=== PATIENT | female | born 2000 | race Caucasian/White ===

== ENCOUNTER 2020-04-14 20:25 | Observation (INO) | payer BC, SELFPAY ==
[2020-04-14 20:26] VITALS: BP 128/75; PULSE 109; RESP 16; TEMP 36.6; O2SAT 100; BMI 25.4
--- NOTE | 2020-04-14 21:39 | CT_ITS ---
We are attempting to reach an attending provider to discuss findings. An addendum with communication details will be sent when the communication is complete. STUDY: CT ABDOMEN AND PELVIS WITHOUT CONTRAST REASON FOR EXAM: Female, 20 years old. RT SIDED ABD PAIN AND BLOATING THAT STARTED YESTERDAY -- PREG TEST WAS NEG. RADIATION DOSAGE (If Supplied By Facility): CTDIvol = ( 6.16 ) mGy, DLP = ( 292.56 ) mGycm TECHNIQUE: Transaxial images were obtained from the dome of the diaphragm to the symphysis pubis without oral contrast, and without intravenous contrast. Sagittal and coronal images were reconstructed. Individualized dose optimization techniques were used for this CT. COMPARISON: None. FINDINGS: The visualized lung bases are unremarkable. The visualized portions of the heart are within normal limits. Normal liver. Normal gallbladder and extrahepatic biliary system. Normal spleen. Normal pancreas. Normal bilateral adrenal glands. 2 mm nonobstructing right renal stone. Normal left kidney. Normal visualized stomach. Normal small intestine. Normal colon. The appendix is prominent, measuring 8 mm in diameter on image 117 of series 2. No air is seen in the appendiceal lumen. No right lower quadrant fatty stranding is seen. Normal abdominal aorta. Normal inferior vena cava. Normal retroperitoneum. Normal urinary bladder. Normal abdominal wall. Normal osseous structures. CT/Abdomen/Pelvis without Cont IMPRESSION: Overall, acute appendicitis cannot be excluded. The appendix is prominent, measuring 8 mm in diameter. No air is seen in the appendiceal lumen. No right lower quadrant fatty stranding is seen. Surgical consultation may be indicated. No evidence of acute intestinal pathology or acute obstructive uropathy. Electronically Signed: Efe Tracy MD at 22:54 EDT Tel , Service support ,
[2020-04-14 21:59] LABS: Absolute Lymphocyte Count 2.78 X10^3/uL (0.83-4.51); Absolute Neutrophil Count 3.6 X10^3/uL (2.0-7.7); Basophil# 0.05 X10^3/uL; Basophil% 0.7 % (0-1); Eosinophil# 0.16 X10^3/uL; Eosinophils% 2.2 % (0-5); Hematocrit 42.5 % (37-47); Hemoglobin 14.6 g/dL (12.0-15.0); Lymphocyte # 2.78 X10^3/ul (4.0); Lymphocyte % 38.2 % (19-41); Mean Corp Hgb Conc 34.4 g/dL (32-36); Mean Corpuscular Hgb 30.1 pg (27.0-32.0); Mean Corpuscular Volume 87.6 fL (81-99); Mean Platelet Vol. 9.7 fl (6.2-12.0); Monocyte# 0.67 X10^3/uL; Monocyte% 9.2 % (0-10); NRBC Flagged by Analyzer 0 % (0-5); Neutrophil % 49.4 % (47-70); Platelet Count 360 K/mm3 (150-450); RBC Distribution Width CV 11.6 % (11.6-14.6); RBC Distribution Width SD 36.9 fl (35.1-43.9); Red Blood Count 4.85 M/mm3 (4.2-5.4); White Blood Count 7.3 K/mm3 (4.4-11.0)
[2020-04-14 22:02] LABS: Bacteria 0 SEEN /hpf (None Seen); Mucous, Urine 0 SEEN /hpf (<or=2+); Red Blood Cells-Urine 0 SEEN /hpf (0-5); White Blood Cells 0 SEEN /hpf (0-5)
[2020-04-14] MEDS: Ondansetron 4 MG/2 ML Vial IV (22:05)
[2020-04-14] MEDS: 0.9% Normal Saline 1,000 ML 1000 ML IV (22:05)
[2020-04-14] MEDS: Morphine 4 MG/ML Syringe IV (22:06)
[2020-04-14 22:10] LABS: Internal QC Validated? YES +Cl - CLEAR BKGD; Pregnancy, Serum, hCG Quali. NEGATIVE Negative
[2020-04-14 22:14] LABS: Glucose, Dipstick Normal (Normal); Ketone-Dipstick Negative (Negative); Leukocyte Esterase-Dipstick Negative /ul (Negative); Nitrite-Dipstick Negative (Negative); Occult Blood-Urine Negative /ul (Negative); Protein-Dipstick Negative (Negative); Specific Gravity, Urine 1.005 (1.002-1.030); Urine Bilirubin Dipstick Negative (Negative); Urine Urobilinogen Normal (Normal)
[2020-04-14 22:15] LABS: Color, Urine Yellow (Yellow); Urine Clarity Sl. Cloudy (Clear)
[2020-04-14 22:16] LABS: ALB/GLOB Ratio 1.1 RATIO (0.9-2.4); AST(SGOT) 18 U/L (15-37); Alanine Aminotransfer ALT/SGPT 30 U/L (13-56); Albumin, Serum 3.9 g/dL (3.2-5.0); Alkaline Phosphatase 91 U/L (45-117); Anion Gap 3 (5-15); BUN 9 mg/dL (7-18); BUN/Creat Ratio 9.2 RATIO (10-20); Calcium,Total 8.9 mg/dL (8.5-10.1); Chloride 107 mmol/L (98-107); Creatinine, Serum 0.98 mg/dL (0.55-1.02); EST Glomerular Filtration Rate 75 mL/min (>60); Est Glom Filt Rate - Afr Amer 91 mL/min (>60); Estimated Creatinine Clearance 67.95 ml/min; Globulin 3.5 g/dL (2.2-4.2); Glucose 81 mg/dL (74-106); Potassium 4.2 mmol/L (3.5-5.1); Protein, Total 7.4 g/dL (6.4-8.2); Sodium Level 141 mmol/L (136-145)
[2020-04-14 22:28] LABS: Squamous Epithelial Cells - UA 5-10 SEEN /hpf (5-10)
--- NOTE | 2020-04-14 23:32 | PCM.CONS.GEN ---
Problem List (1) Acute appendicitis Status: Acute Qualifiers: Acute appendicitis type: with localized peritonitis Appendicitis gangrene presence: unspecified whether gangrene present Appendicitis perforation presence: without perforation Appendicitis abscess presence: without abscess Qualified Code(s): K35.30 - Acute appendicitis with localized peritonitis, without perforation or gangrene Reason for Consult Date of Consultation: 04/14/20 History of Present Illness: The patient is a 20 year old F who developed generalized abdominal pain yesterday that then localized to the right lower quadrant. She presented to the emergency department where laboratory values show that they were normal and a CAT scan with no contrast was equivocal for possible appendicitis. The appendix was generous but there was no fluid or fat stranding identified. She has had no hematochezia. No fever. No nausea or vomiting. Past Medical History Allergies No Known Allergies Allergy (Verified 04/14/20 20:28) Home Medications: Ambulatory Orders Medication Instructions Recorded Amitriptyline HCl 50 mg PO DAILY 04/14/20 Spironolactone [Aldactone] 100 mg PO DAILY 04/14/20 Sumatriptan Succinate [Imitrex] 50 mg PO .X1 PRN 04/14/20 Surgical History: no surgical history Smoking Status: Never smoker - *Family History Maternal History Items: No pertinent history Review of Systems Constitutional: Denies: Chills, Fever, Weight Change Cardiovascular: Denies: Chest Pain, Chest Pressure, Chest Tightness, Palpitations Respiratory: Denies: Cough, Hemoptysis, Shortness of breath at rest, Shortness of breath upon exertion, Wheezing Gastrointestinal: Reports: Abdominal Pain. Denies: Nausea, Vomiting Patient Problems: Active and Suspected Problems Acute appendicitis (Acute) - Physical Exam Vitals/I&O's: Vital Signs Temp Pulse Resp BP Pulse Ox 97.9 F 109 H 16 128/75 H 100 04/14/20 20:26 04/14/20 20:26 04/14/20 20:26 04/14/20 20:26 04/14/20 20:26 Oxygen Delivery Method Room Air Weight: 134 lb 14.766 oz Body Mass Index (BMI) 25.4 Intake and Output for Last 24 Hours 04/12/20 04/13/20 04/14/20 23:59 23:59 23:59 Intake Total 1000 / 1000 Balance 1000 / 1000 General: Alert, Oriented x3 Lungs: Clear to auscultation Cardiovascular: Regular rate, Regular Rhythm, No murmurs Abdomen: Soft, Tender - She is tender in the right lower quadrant. She has rebound tenderness. She has a positive Rovsing sign. Positive cough test. Extremities: No clubbing, No cyanosis, No edema Laboratory Results 04/14/20 21:50: WBC 7.3, RBC 4.85, Hgb 14.6, Hct 42.5, MCV 87.6, MCH 30.1, MCHC 34.4, RDW Std Deviation 36.9, RDW Coeff of Cheri 11.6, Plt Count 360, MPV 9.7, Immature Gran % (Auto) 0.300, Neut % (Auto) 49.4, Lymph % (Auto) 38.2, [place] % (Auto) 9.2, Eos % (Auto) 2.2, Baso % (Auto) 0.7, Absolute Neuts (auto) 3.6, Absolute Lymphs (auto) 2.78, Nucleated RBC % 0 04/14/20 21:50: Sodium 141, Potassium 4.2, Chloride 107, Carbon Dioxide 31.0, Anion Gap 3 L, BUN 9, Creatinine 0.98, Estim Creat Clear Calc 67.95, Est GFR (MDRD) Af Amer 91, Est GFR (MDRD) Non-Af 75, BUN/Creatinine Ratio 9.2 L, Glucose 81, Calcium 8.9, Total Bilirubin 0.30, AST 18, ALT 30, Alkaline Phosphatase 91, Total Protein 7.4, Albumin 3.9, Globulin 3.5, Albumin/Globulin Ratio 1.1 04/14/20 21:50: Serum , Qual NEGATIVE 04/14/20 21:55: Urine Color Yellow, Urine Clarity Sl. Cloudy, Urine pH 7.0, Ur Specific [place] 1.005, Urine Protein Negative, Urine Glucose (UA) Normal, Urine Ketones Negative, Urine Occult Blood Negative, Urine Nitrite Negative, Urine Bilirubin Negative, Urine Urobilinogen Normal, Ur Leukocyte Esterase Negative, Urine RBC 0 SEEN, Urine WBC 0 SEEN, Ur Squamous Epith Cells 5-10 SEEN, Urine Bacteria 0 SEEN, Urine Mucus 0 SEEN Current Medications Piperacillin Sod/Tazobactam (Sod 4.5 gm/ Sodium Chloride) 100 mls @ 200 mls/hr IV X1 ONE Stop: 04/14/20 23:50 Assessment/Plan All Active Problems Acute appendicitis (Acute) Plan is to perform a laparoscopic appendectomy. Risk benefits have been reviewed with the patient they include but are not limited to bleeding and infection possible need for further operations possible delayed abscesses. Possible injury to surrounding structures. In addition she understands that there could be blood clots heart attacks pneumonia strokes up to including pulmonary embolus and or including . All questions asked were answered the patient is willing to proceed. Procedure Criteria Procedure Type: Elective COVID Risk Discussion: The surgeon/proceduralist and patient have discussed in detail the risk of exposure to and/or potential harm posed by the COVID-19 virus with having a surgery/procedure at this time versus the risk of delaying the surgery/procedure. It is not possible to know either the risk of delaying the surgery or procedure or chance of getting an infection with perfect accuracy, but a joint decision was made between the patient and the surgeon/proceduralist to proceed at this time with the scheduled surgery/procedure as indicated on the consent form. Office Visits / Consults: [id number] IP Consult L4 - Modifier 57
[2020-04-14 23:46] VITALS: BP 116/71; PULSE 96; RESP 18; TEMP 36.3; O2SAT 99; BMI 25.4
[2020-04-14 23:50] VITALS: BP 116/71; PULSE 96; PULSE 98; RESP 18; TEMP 36.6; O2SAT 99
[2020-04-15] VITALS (10 sets, daily range): BP systolic 100–116; BP diastolic 52–72; PULSE 98–127; RESP 16–18; TEMP 36–36.4; O2SAT 98–100; BMI 24.5; BMI 24.6
--- NOTE | 2020-04-15 | APP_PTH ---
PATIENT: SONG HORVATH LOC: [facility] U#:[id number] AGE/SX: 20/F ROOM: [facility]317 RE04/15/[address]: Dr. John Sotelo MD : 2000 BED: 1 DIS: 04/15/2020 SPEC #: [id number] RECD: 04/15/20 08:05 STATUS: SERGEY REYesenia #: [id number] MARY: 04/15/20 00:[address]: John Sotelo DEPT: SURGICAL PATHOLOGY RECD BY: Caio Huang ENTERED: 04/15/20 08:06 SP TYPE: APPENDIX OT DR: No Primary Care Phys Tissues: Appendix, NOS Procedures: Surgery Specimen Level III HEADER OPERATION: Laparoscopic appendectomy PRE-OP DIAGNOSIS: Acute appendicitis TISSUE SUBMITTED: Appendix MICROSCOPIC DIAGNOSIS Appendix, appendectomy: Acute appendicitis. Acute serositis. AM:nargis 04/16/20 MICROSCOPIC DESCRIPTION Slides are reviewed. GROSS DESCRIPTION Received is one container labeled with the patient's name and designated appendix. The specimen consists of an appendix measuring 4.5 cm in length and up to 0.6 cm in diameter. The attached periappendiceal adipose tissue measures up to 1 cm in width. The serosa is congested. No obvious perforation is identified. The lumen is pinpoint. No fecalith is identified. The entire appendix s submitted in two cassettes. / SJ:rg 04/15/20 TC:2 CPT: 96302
--- NOTE | 2020-04-15 00:11 | ED.DCSUM_ITS ---
- ER Visit Summary Date of Service: 04/15/20 Chief Complaint: Abdominal pain History of Present Illness: The patient is a 20 F with no primary care physician. She reports that she has right lower quadrant abdominal pain that began yesterday and is gradually gotten worse. Is a sharp pain is 1010 at worst and 7 out of 10 currently. Is worsened by movement. Is relieved by remaining still. She is had nausea but no vomiting. She has had a poor appetite. She took so the diarrhea last night. Has not had diarrhea since then. No melena medication. No dysuria frequency. Last menstrual period was 3 weeks ago. Physical Examination: Vitals: Stable. Afebrile. General: Well-nourished and well-developed. Head: Normocephalic atraumatic. Neck: Supple, no lymphadenopathy. No JVD. Nontender. Cardiovascular: Regular rate and rhythm. No murmurs. Respiratory: No respiratory distress. Clear to auscultation bilaterally. Abdominal: Soft, moderate tenderness palpation right lower quadrant, nondistended, normal bowel sounds. No guarding, rebound, or peritoneal signs. Back: Nontender. Extremities: Nontender, no edema. Skin: Normal color, no rash. Neurologic: Alert and oriented ?3. Cranial nerves II through XII are intact. Normal strength and sensation. Psych: Normal affect. Test Results: CBC is normal. Chem-7 is normal. LFTs are normal. UA is normal. test is negative. Clinical Impression(s) from Imaging Studies Abdomen/Pelvis CT 04/14/20 21:39 IMPRESSION: Overall, acute appendicitis cannot be excluded. The appendix is prominent, measuring 8 mm in diameter. No air is seen in the appendiceal lumen. No right lower quadrant fatty stranding is seen. Surgical consultation may be indicated. No evidence of acute intestinal pathology or acute obstructive uropathy. Electronically Signed: Efe Tracy MD at 22:54 EDT Tel , Service support , ADDENDUM: 04/14/20 [id number] IMPRESSION: Overall, acute appendicitis cannot be excluded. The appendix is prominent, measuring 8 mm in diameter. No air is seen in the appendiceal lumen. No right lower quadrant fatty stranding is seen. Surgical consultation may be indicated. No evidence of acute intestinal pathology or acute obstructive uropathy. N.B. : The above information has been verbally conveyed by Efe Tracy MD to Barrie Saldana MD, on 04/14/2020 22:55:22 (ET). Electronically Signed: Efe Tracy MD at 22:54 EDT Tel , Service support , Emergency Department Course and Treatment: Patient was given Zosyn IV. She is resting comfortably. Treatment Plan: Patient was seen by Dr. Sotelo in the emergency department. He is going to take her to the operating room. Disposition: Admitted in stable condition. Impression: 1. Appendicitis. This note was generated with [employer] dictation software. It may contain incorrect words, spelling, and punctuation that were not noted in review of the chart prior to signing
--- NOTE | 2020-04-15 00:47 | OP.PCM_ITS ---
Problem List (1) Acute appendicitis Status: Acute Qualifiers: Acute appendicitis type: with localized peritonitis Appendicitis gangrene presence: unspecified whether gangrene present Appendicitis perforation presence: without perforation Appendicitis abscess presence: without abscess Qualified Code(s): K35.30 - Acute appendicitis with localized peritonitis, without perforation or gangrene Report of Operation Date of Procedure: 04/15/20 Pre-Operative Diagnosis: Acute appendicitis Post-Operative Diagnosis: Same Surgery/Procedure Performed:: Laparoscopic appendectomy Type of Anesthesia:: General Anesthesiologist: Juvencio Garcia Estimated Blood Loss (mL): < 25 cc Description of Procedure: Patient was brought into the operating room. Placed in the supine position. Under excellent general endotracheal ovation the abdomen was sterilely prepped and draped in usual fashion. Local was injected infraumbilically. Dissection was carried down to the fascia infraumbilically. Fascia was grasped with a [place]. Varies needle was placed inside the abdomen. The abdomen was insufflated to 15 torr. A 10/12 trocar was placed without difficulty. Suprapubic #5 trocar was placed, a left lower quadrant #5 trocar was placed. Both of these under direct visualization without injury to underlying structures. Patient was placed in the headdown and rotated to the left. Patient was noted to have a retrocecal appendix. I came down on the mesoappendix with the Enseal. I had excellent hemostasis. I transected the base of the appendix with a 45 linear cutter. Placed a specimen a specimen bag and delivered through the umbilical port without difficulty. Had excellent hemostasis on the bed/stump of the appendix. I ran the small bowel. No Meckel's diverticulum was identified. I inspected the pelvis. Both ovaries looked normal as did the uterus. There was no purulent fluid identified. The liver itself looked normal. Trochars were removed under direct visualization. The fascia the umbilical port was closed with a [id number] stitch of 0 Vicryl. Skin incisions were closed with subcuticular stitches of 4-0 Monocryl. Steri-Strips were applied. Sterile dressings were applied. The patient tolerated the procedure well. - Admit VTE Documentation VTE Present on Admission: No VTE Mechan Device Prophylaxis: SCD's VTE Pharm Prophylaxis ordered?: No Reason prophylaxis not ordered:: Treatment Not Indicated [id number]: [id number] Laparoscopy appendectomy
[2020-04-15] MEDS: 0.9% Normal Saline 1,000 ML 75 ML IV (01:53)
[2020-04-15] MEDS: HYDROmorphone 0.5 MG/0.5 ML SYRINGE IV (05:08)
--- NOTE | 2020-04-15 05:37 | NURSING ---
Patient ambulated two laps around unit with FACTORY MAINTENANCE TECHNICIAN. Tolerated well.
--- NOTE | 2020-04-15 12:21 | DCINST_ITS ---
Discharge Diet: Light diet - advance as tolerated - if you have questions about your diet instructions, please talk to you doctor. Discharge Activity: May Not Drive - for 3-5 days or while taking narcotic pain meds. May shower in (days): 1 Call your doctor if your incision/area has: Continuous Slow Oozing, Sudden Increased Bleeding, Increased Pain/ Swelling, Increased Redness, Foul Smelling Discharge Call your doctor if you observe: Fever of 101 or Higher Suture Line Care: Avoid Pulling/Pushing, Avoid Pinching/Bending Additional Dressing/Incision Instructions:: Keep dressing clean and dry. Change or remove dressing in 2 days. Leave steri strips for 1 week. May protect with a gauze bandaid. Medications to take at Discharge Amitriptyline HCl 50 mg PO DINNER 04/14/20 Spironolactone [Aldactone] 100 mg PO DINNER 04/14/20 Sumatriptan Succinate [Imitrex] 50 mg PO .X1 PRN 04/14/20 Claritin 04/15/20 Allergies/Adverse Reactions: Allergies No Known Allergies Allergy (Verified 04/14/20 20:28) Primary Care Physician: Care Physician,No Primary [Primary Care Provider] - Test Results: Test results from this visit will be discussed in further detail at your follow- up appointment, if applicable. Please Follow Up With: John Sotelo MD - [phone] When: Call to make a follow up appointment with your doctor in 1 week.
[2020-04-15] MEDS: oxyCODONE 5 MG Tablet PO (13:33)
== END 2020-04-15 13:50 | disposition home or self-care (01) ==
LOC: ED 21:40 → SDC 23:29 → AC 23:30 → SDC 23:53 → MS3 04-15 01:03
PROVIDERS: Admitting Provider Surgery; Emergency Provider Emergency Medicine; Referring Provider Surgery; Visit Provider Surgery
PROC: 0DTJ4ZZ Resection of Appendix, Percutaneous Endoscopic Approach (ICD-10-PCS; CPT 44970; principal; 2020-04-15 00:30)
DX: K35.30 Acute appendicitis with localized peritonitis, without perforation or gangrene (principal)
CPT/HCPCS: 00840; 44970; 74176; 80053; 81001; 84703; 85025; 88304; 96361; 96365; 96366; 96375; 99218; 99284; J7030; A4216; C1760; G0378; J2405

== ENCOUNTER 2021-04-24 07:42 | Day surgery (SDC) | payer BC, SELFPAY ==
[2020-04-15 02:46] VITALS: BMI 24.5
[2021-04-24] VITALS (7 sets, daily range): BP systolic 102–115; BP diastolic 54–102; PULSE 74–108; RESP 16; TEMP 36.1–37.1; O2SAT 96–100; BMI 26.4
[2021-04-24 08:30] LABS: Internal QC Validated? YES +Cl - CLEAR BKGD; Pregnancy, Urine Negative Negative
[2021-04-24] MEDS: Lactated Ringers 1,000 ML 100 ML IV ×2 (08:44→11:12)
--- NOTE | 2021-04-24 09:10 | TONS_PTH ---
PATIENT: SONG HORVATH LOC: [facility] [place] U[place][id number] AGE/SX: 21/F ROOM: RE04/24/[address]: Dr. Anthony Feldman MD : 2000 BED: DIS: 04/24/2021 SPEC #: [id number] RECD: 04/24/21 10:35 STATUS: SERGEY JER #: [id number] MARY: 04/24/21 09:[address]: Anthony Feldman DEPT: SURGICAL PATHOLOGY RECD BY: Eric Rebollar ENTERED: 04/24/21 10:48 SP TYPE: TONSILS OTHR DR: Suzie Primary Care Phys Tissues: A - Tonsil, NOS B - Tonsil, NOS Procedures: Surgery Specimen Level III HEADER OPERATION: Tonsillectomy PRE-OP DIAGNOSIS: Chronic tonsillitis TISSUE SUBMITTED: A ? Right tonsil, B ? Left tonsil MICROSCOPIC DIAGNOSIS A. Right tonsil, tonsillectomy: Reactive lymphoid hyperplasia, consistent with chronic tonsillitis. Focal actinomyces colonization. B. Left tonsil, tonsillectomy: Reactive lymphoid hyperplasia, consistent with chronic tonsillitis. Focal actinomyces colonization. ZAINA:nargis 04/27/2021 MICROSCOPIC DESCRIPTION Slides are reviewed. GROSS DESCRIPTION A - Received in formalin labeled with the patient's name and designated right tonsil. The specimen consists of a tonsil that weighs 33 gm and measures 2.5 x 1.5 x 1.2 cm. The external surface is pink-loredo, smooth, glistening and somewhat lobulated. Focally it is hemorrhagic, granular and bears cautery artifact. Serial cross sections through the tonsil reveal normal tonsillar architecture. Temp Recruiter sections are submitted in one cassette. B - Received in formalin labeled with the patient's name and designated left tonsil. The specimen consists of a tonsil that weighs 3.1 gm and measures 2.5 x 1.6 x 1.5 cm. The external surface is pink-loredo, smooth, glistening and somewhat lobulated. Focally it is hemorrhagic, granular and bears cautery artifact. Serial cross sections through the tonsil reveal normal tonsillar architecture. Temp Recruiter sections are submitted in one cassette. / AM:nargis 04/24/21 TC:3 CPT: 80779 x2
--- NOTE | 2021-04-24 09:52 | OP.PCM_ITS ---
Problems Associated Problem List Diagnoses (1) Chronic tonsillitis: Report of Operation Date of Procedure: 04/24/21 Pre-Operative Diagnosis: Chronic tonsillitis Post-Operative Diagnosis: Same Surgery/Procedure Performed:: Tonsillectomy Description of Surgical Findings:: Anay is a 21-year-old female who presents with complaints of recurrent frequent sore throat and tonsillitis with examining cryptic tonsillar hypertrophy. The above procedures offered hopes alleviation of these complaints and she is eager to proceed. The risks, alternatives, potential complications, and benefits were discussed at length and any questions answered to the patient and/or caregiver's satisfaction. Witnessed informed consent was obtained in the office, and the patient and/or caregiver was agreeab le to proceed. Procedure went as follows: The patient was identified in the preoperative holding, brought to the operating room, was placed under general anesthesia and intubated. When appropriate anesthesia was obtained, the head of bed was rotated and the patient prepped and draped in usual sterile fashion. A Marilyn Luis mouthgag was then placed and the patient suspended from the Gutierres stand. The oral cavity was examined and noted to have 2+ cryptic tonsillar hypertrophy. Beginning on the right side, the right tonsil was then grasped with a curved tenaculum and dissected from the underlying capsule with monopolar cautery. This was then sent as specimen. Similar procedure was then completed on the contralateral side. The oral and nasal cavities were then irrigated with saline solution. An NG tube was then placed to decompress the stomach. The patient was then returned to anesthesia, revived and extubated having tolerated the procedure well. Surgeon: Anthony Feldman Type of Anesthesia: General Specimen's removed: bilateral tonsils Drains: none Estimated Blood Loss (mL): 5 mL Fluids Replaced: 700 mL Grafts/Implants Used: none Complications none Admit VTE Documentation VTE Present on Admission: No VTE Mechan Device Prophylaxis: SCD's VTE Pharm Prophylaxis ordered?: No
--- NOTE | 2021-04-24 09:56 | PCM.DC ---
Discharge Instructions Diet Discharge Diet: No restrictions Activity Discharge Activity: Return to Normal Activity Dressing / Incision Call your doctor if your incision/area has: Sudden Increased Bleeding Call your doctor if you observe: Fever of 101 or Higher and Uncontrolled pain Follow Up Care Please Follow Up With: Anthony Feldman MD When: 2 weeks Test Results: Test results from this visit will be discussed in further detail at your follow-up appointment, if applicable. Discharge Plan Admission Primary Reason for Your Visit: Chronic tonsillitis Attending Provider: Anthony Feldman Primary Care Provider: Care Physician,Suzie Primary Discharge Orders/Prescriptions Prescriptions: New ibuprofen [Children's Ibuprofen] 100 mg/5 mL Suspension 600 mg PO Q6H PRN PRN (Reason: Pain Score 4-10/10) Qty: 0 RF: 0 acetaminophen 160 mg/5 mL (5 mL) Suspension 500 mg PO Q4H PRN PRN (Reason: Pain Score 1-5/10) Qty: 0 RF: 0 Continued spironolactone 100 MG tablet 100 mg PO DINNER RF: 0 sumatriptan succinate 50 MG tablet 50 mg PO .X1 PRN RF: 0 Claritin 10 mg PO/SL DAILY RF: 0 Epiduo Forte 0.3-2.5 % Gel With Pump 1 applic TOPICAL DAILY RF: 0 Referrals / Follow Up: Care Physician,No Primary [Primary Care Provider] - Disposition Disposition (needs filled in before D/C Order can be placed): Home, Self Care
[2021-04-24] MEDS: Acetaminophen 160 MG/5 ML UDC 500 MG PO (11:52)
[2021-04-24] MEDS: Ondansetron 4 MG/2 ML Vial IV (11:58)
== END 2021-04-24 14:29 | disposition home or self-care (01) ==
LOC: SDC 07:42 → AC 07:43
PROVIDERS: Referring Provider Otolaryngology; Visit Provider Otolaryngology
PROC: (CPT 42826; principal; 2021-04-24 08:55)
DX: J35.01 Chronic tonsillitis (principal); H92.03 Otalgia, bilateral
CPT/HCPCS: 42826; 81025; 88304; J7120; J2310; J2405

== ENCOUNTER 2021-12-06 20:39 | Inpatient (IN) | payer OTHER, SELFPAY ==
[2021-12-06 20:40] VITALS: BP 119/72; PULSE 90; RESP 18; TEMP 36.2; O2SAT 98; BMI 23.8
--- NOTE | 2021-12-06 20:52 | CT_ITS ---
HISTORY: Abdomen pain for 2 hours with diarrhea, history of appendectomy. EXAMINATION: CT Abdomen And Pelvis W/ Contrast Injection TECHNIQUE: Helically acquired images were obtained of the abdomen and pelvis following IV contrast. A radiation dose optimization technique was used for this scan. IV Contrast dosage and agent: 100mL [id number]-370 Oral contrast: None. COMPARISON: Unenhanced CT abdomen and pelvis from 04/14/20 FINDINGS: LOWER CHEST: Lung bases with no acute findings. Visualized heart normal size. LIVER: Mild intrahepatic periportal edema demonstrated. Hepatic and portal veins are patent. No discrete hepatic mass. GALLBLADDER AND BILIARY TREE: Contracted gallbladder with mild pericholecystic edema. No calcified gallstones identified. No significant biliary ductal dilation. KIDNEYS AND URETERS: Normal renal size. No concerning lesion. There is no perinephric inflammation or hydronephrosis. Tiny 2 mm right renal stone. No ureteral stones identified. ADRENAL GLANDS: Non-enlarged. SPLEEN: Normal size without discrete mass. PANCREAS: No discrete mass or peripancreatic inflammation. BOWEL: Status post appendectomy. No abnormal stomach or bowel distension. No focal inflammatory change observed. LYMPH NODES: No enlarged mesenteric or retroperitoneal lymph nodes. PERITONEUM: No free air or significant free fluid. No other fluid collection. VESSELS: Major vessels are normal caliber and unremarkable. URINARY BLADDER: Unremarkable. REPRODUCTIVE ORGANS: No pelvic masses. ABDOMINAL WALL: No acute findings or significant hernia defect. BONES: Intact with no suspicious osseous lesion. CT/Abdomen/Pelvis W IV Cont ONLY IMPRESSION: 1. Mild nonspecific intrahepatic periportal edema with contracted gallbladder. Correlate with LFTs and hepatitis profile. 2. Tiny nonobstructing right renal stone. Individualized dose optimization techniques were used for this CT. at 2231 Reported and signed by: Manuel Cabrera MD Electronically Signed: Manuel Cabrera MD at 22:30 EDT ,
[2021-12-06] MEDS: Ondansetron 4 MG/2 ML Vial IV (21:05)
[2021-12-06] MEDS: Ketorolac 15 MG/ML Vial IV (21:06)
[2021-12-06] MEDS: 0.9% Normal Saline 1,000 ML 1000 ML IV (21:07)
[2021-12-06 21:30] LABS: Absolute Lymphocyte Count 1.84 X10^3/uL (0.83-4.51); Absolute Neutrophil Count 16.6 X10^3/uL (2.0-7.7); Basophil# 0.06 X10^3/uL; Basophil% 0.3 % (0-1); Eosinophil# 0.13 X10^3/uL; Eosinophils% 0.7 % (0-5); Hematocrit 41.2 % (37-47); Hemoglobin 14.2 g/dL (12.0-15.0); Lymphocyte # 1.84 X10^3/ul (0.83-4.51); Lymphocyte % 9.4 % (19-41); Mean Corp Hgb Conc 34.5 g/dL (32-36); Mean Corpuscular Hgb 29.5 pg (27.0-32.0); Mean Corpuscular Volume 85.5 fL (81-99); Mean Platelet Vol. 9.3 fl (6.2-12.0); Monocyte# 0.77 X10^3/uL; Monocyte% 3.9 % (0-10); NRBC Flagged by Analyzer 0 % (0-5); Neutrophil # 16.61 X10^3/uL (2.7-7.7); Neutrophil % 85.2 % (47-70); Platelet Count 443 K/mm3 (150-450); RBC Distribution Width CV 11.9 % (11.6-14.6); RBC Distribution Width SD 37.3 fl (35.1-43.9); Red Blood Count 4.82 M/mm3 (4.2-5.4); White Blood Count 19.5 K/mm3 (4.4-11.0)
[2021-12-06] MEDS: fentaNYL 100 MCG/2 ML Ampul 50 MCG IV ×2 (21:40→22:37)
[2021-12-06 21:41] LABS: Internal QC Validated? YES +Cl - CLEAR BKGD; Pregnancy, Serum, hCG Quali. NEGATIVE Negative
[2021-12-06 21:47] LABS: ALB/GLOB Ratio 1.1 RATIO (0.9-2.4); AST(SGOT) 22 U/L (15-37); Alanine Aminotransfer ALT/SGPT 24 U/L (13-56); Albumin, Serum 4.1 g/dL (3.2-5.0); Alkaline Phosphatase 63 U/L (45-117); Anion Gap 7 (5-15); BUN 12 mg/dL (7-18); BUN/Creat Ratio 12.8 RATIO (10-20); Calcium,Total 9.6 mg/dL (8.5-10.1); Chloride 109 mmol/L (98-107); Creatinine, Serum 0.94 mg/dL (0.55-1.02); EST Glomerular Filtration Rate 78 mL/min (>60); Est Glom Filt Rate - Afr Amer 95 mL/min (>60); Estimated Creatinine Clearance 73.62 ml/min; Globulin 3.7 g/dL (2.2-4.2); Glucose 135 mg/dL (74-106); Lipase 96 U/L (73-393); Potassium 3.3 mmol/L (3.5-5.1); Protein, Total 7.8 g/dL (6.4-8.2); Sodium Level 140 mmol/L (136-145)
[2021-12-06 22:18] LABS: Bacteria 0 SEEN /hpf (None Seen); Mucous, Urine 0 SEEN /hpf (<or=2+); Red Blood Cells-Urine 0 SEEN /hpf (0-5); Squamous Epithelial Cells - UA 0 SEEN /hpf (5-10); White Blood Cells 0 SEEN /hpf (0-5)
[2021-12-06 22:21] LABS: Color, Urine Yellow (Yellow); Glucose, Dipstick Normal (Normal); Ketone-Dipstick Negative (Negative); Leukocyte Esterase-Dipstick Negative /ul (Negative); Nitrite-Dipstick Negative (Negative); Occult Blood-Urine Negative /ul (Negative); Protein-Dipstick Negative (Negative); Urine Bilirubin Dipstick Negative (Negative); Urine Clarity Clear (Clear); Urine Urobilinogen Normal (Normal)
[2021-12-06] MEDS: Mag Hydrox/Al Hydrox/Simeth 30 ML UDC PO (22:56)
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
[2021-12-06 22:58] VITALS: BP 115/80; PULSE 71; RESP 15; TEMP 36.6; O2SAT 97
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
[2021-12-06 23:37] VITALS: BMI 24.3
[2021-12-06 23:38] VITALS: BP 118/80; PULSE 83; RESP 16; TEMP 36.7; O2SAT 99
[2021-12-06 23:48] LABS: Magnesium 1.7 mg/dL (1.6-2.6); Phosphorus 1.5 mg/dL (2.5-4.9)
[2021-12-07] MEDS: Lactated Ringers 1,000 ML 150 ML IV ×2 (00:10→06:45)
[2021-12-07] MEDS: Potassium Chloride 10mEq/100mL 10 MEQ/100 ML IV.SOLN. 100 MEQ IV BOLUS (00:19)
--- NOTE | 2021-12-07 00:34 | US_ITS ---
STUDY: ABDOMINAL ULTRASOUND - RIGHT UPPER QUADRANT REASON FOR VISIT: Female, 21 years old . 2 day history of epigastric pain. TECHNIQUE: Ultrasound evaluation of the right upper quadrant was performed with real-time and static belle-scale imaging. TECHNICAL QUALITY: Adequate. COMPARISON: Comparison is made with prior CT scan done the pelvis dated 12/06/2021. FINDINGS: Liver: The liver measures 14 cm. There is normal echogenicity of the liver. The bile ducts are within normal limits. There is hepatic color flow. The direction of portal flow is hepatopetal. There is no demonstrated mass lesion. Gallbladder: Mildly contracted gallbladder lumen. The gallbladder wall is mildly thickened and measures 4.1 mm. There is a negative sonographic Del Real''s sign. There is no pericholecystic fluid. There are no gallstones. Common Bile Duct (C.B.D.): The common bile duct measures 2.9 mm. Pancreas: Normal size of the head, body and tail of the pancreas. There is normal echogenicity of the pancreas. There is no demonstrated pancreatic mass or cyst. Right Kidney: Normal size of the right kidney. The right kidney measures 11.3 cm x 4.4 cm x 3.5 cm. Normal renal cortex. The right cortex measures 1.1 cm. There is no demonstrated renal mass or cyst. There is no right hydronephrosis. Incidental note is made of a 3 mm noncalcified right intrarenal calculus. US/Abdomen Limited IMPRESSION: Mild degree of gallbladder contraction. Mild degree of gallbladder wall thickening. No pericholecystic fluid is seen at this time. Electronically Signed: Lloyd Martinez MD at 8:46 EDT ,
[2021-12-07] MEDS: Potassium Chloride 10mEq/100mL 10 MEQ/100 ML IV.SOLN. 75 MEQ IV BOLUS (01:46)
[2021-12-07 03:29] VITALS: BP 123/78; PULSE 72; RESP 16; TEMP 36.9; O2SAT 99
[2021-12-07 06:27] LABS: Absolute Lymphocyte Count 2.28 X10^3/uL (0.83-4.51); Absolute Neutrophil Count 7.4 X10^3/uL (2.0-7.7); Basophil# 0.04 X10^3/uL; Basophil% 0.4 % (0-1); Eosinophil# 0.18 X10^3/uL; Eosinophils% 1.6 % (0-5); Hematocrit 37.4 % (37-47); Hemoglobin 12.7 g/dL (12.0-15.0); Lymphocyte # 2.28 X10^3/ul (0.83-4.51); Lymphocyte % 20.8 % (19-41); Mean Corpuscular Hgb 29.7 pg (27.0-32.0); Mean Corpuscular Volume 87.6 fL (81-99); Mean Platelet Vol. 9.8 fl (6.2-12.0); Monocyte# 1.06 X10^3/uL; Monocyte% 9.7 % (0-10); NRBC Flagged by Analyzer 0 % (0-5); Neutrophil # 7.36 X10^3/uL (2.7-7.7); Neutrophil % 67.2 % (47-70); Platelet Count 353 K/mm3 (150-450); RBC Distribution Width SD 38.5 fl (35.1-43.9); Red Blood Count 4.27 M/mm3 (4.2-5.4)
[2021-12-07 06:54] LABS: AST(SGOT) 442 U/L (15-37); Alanine Aminotransfer ALT/SGPT 457 U/L (13-56); Albumin, Serum 3.1 g/dL (3.2-5.0); Alkaline Phosphatase 77 U/L (45-117); Anion Gap 5 (5-15); BUN 8 mg/dL (7-18); BUN/Creat Ratio 10.2 RATIO (10-20); Calcium,Total 8.4 mg/dL (8.5-10.1); Chloride 110 mmol/L (98-107); Creatinine, Serum 0.78 mg/dL (0.55-1.02); EST Glomerular Filtration Rate 96 mL/min (>60); Est Glom Filt Rate - Afr Amer 116 mL/min (>60); Estimated Creatinine Clearance 88.72 ml/min; Globulin 3.1 g/dL (2.2-4.2); Glucose 92 mg/dL (74-106); Potassium 3.7 mmol/L (3.5-5.1); Protein, Total 6.2 g/dL (6.4-8.2); Sodium Level 140 mmol/L (136-145)
[2021-12-07 08:39] VITALS: BP 107/75; PULSE 67; RESP 14; TEMP 36.9; O2SAT 100
[2021-12-07] MEDS: Pantoprazole Sodium 40 MG Tablet PO (08:41)
[2021-12-07] MEDS: 0.9% Saline Lock 10 ML Syringe IV ×2 (08:41→22:01)
[2021-12-07] MEDS: Acetaminophen 325 MG Tablet 650 MG PO ×2 (08:50→16:20)
--- NOTE | 2021-12-07 09:21 | PN.HOSP_ITS ---
Subjective Subjective Feeling better. Had sudden onset of abdominal pain yesterday that was umbilical, then spread across her abdomen. Never had this before. Had transient diarrhea shortly after taking a dose of azithromycin. No further diarrhea. Objective Data Objective Data Vital Signs: Vital Signs Temp Pulse Resp BP Pulse Ox 36.9 C 67 14 107/75 100 12/07/21 08:39 12/07/21 08:39 12/07/21 08:39 12/07/21 08:39 12/07/21 08:39 Oxygen Delivery Method Room Air Weight: 60.4 kg Body Mass Index (BMI) 24.3 Intake & Output: Intake and Output for Last 24 Hours 12/05/21 12/06/21 12/07/21 23:59 23:59 23:59 Intake Total 1000 / 1000 1297.5 / 1297.5 Balance 1000 / 1000 1297.5 / 1297.5 Lab / Micro Data Result Diagrams: 12/07/21 05:55 12/07/21 05:55 Labs: Laboratory Results - last 24 hr 12/06/21 21:06: WBC 19.5 H, RBC 4.82, Hgb 14.2, Hct 41.2, MCV 85.5, MCH 29.5, MCHC 34.5, RDW Std Deviation 37.3, RDW Coeff of Cheri 11.9, Plt Count 443, MPV 9.3, Immature Gran % (Auto) 0.500, Neut % (Auto) 85.2 H, Lymph % (Auto) 9.4 L, [place] % (Auto) 3.9, Eos % (Auto) 0.7, Baso % (Auto) 0.3, Absolute Neuts (auto) 16.6 H, Absolute Lymphs (auto) 1.84, Nucleated RBC % 0 12/06/21 21:06: Sodium 140, Potassium 3.3 L, Chloride 109 H, Carbon Dioxide 24.0, Anion Gap 7, BUN 12, Creatinine 0.94, Estim Creat Clear Calc 73.62, Est GFR (MDRD) Af Amer 95, Est GFR (MDRD) Non-Af 78, BUN/Creatinine Ratio 12.8, Glucose 135 H, Calcium 9.6, Total Bilirubin 0.40, AST 22, ALT 24, Alkaline P hosphatase 63, Total Protein 7.8, Albumin 4.1, Globulin 3.7, Albumin/Globulin Ratio 1.1, Lipase 96 12/06/21 21:06: Serum , Qual NEGATIVE 12/06/21 21:06: Phosphorus 1.5 L, Magnesium 1.7 12/06/21 22:10: Urine Color Yellow, Urine Clarity Clear, Urine pH 7.0, Ur Specific [place] 1.010, Urine Protein Negative, Urine Glucose (UA) Normal, Urine Ketones Negative, Urine Occult Blood Negative, Urine Nitrite Negative, Urine Bilirubin Negative, Urine Urobilinogen Normal, Ur Leukocyte Esterase Negative, Urine RBC 0 SEEN, Urine WBC 0 SEEN, Ur Squamous Epith Cells 0 SEEN, Urine Bacteria 0 SEEN, Urine Mucus 0 SEEN 12/07/21 05:55: WBC 11.0, RBC 4.27, Hgb 12.7, Hct 37.4, MCV 87.6, MCH 29.7, MCHC 34.0, RDW Std Deviation 38.5, RDW Coeff of Cheri 12.0, Plt Count 353, MPV 9.8, Immature Gran % (Auto) 0.300, Neut % (Auto) 67.2, Lymph % (Auto) 20.8, [place] % (Auto) 9.7, Eos % (Auto) 1.6, Baso % (Auto) 0.4, Absolute Neuts (auto) 7.4, Absolute Lymphs (auto) 2.28, Nucleated RBC % 0 12/07/21 05:55: Sodium 140, Potassium 3.7, Chloride 110 H, Carbon Dioxide 25.0, Anion Gap 5, BUN 8, Creatinine 0.78, Estim Creat Clear Calc 88.72, Est GFR (MDRD) Af Amer 116, Est GFR (MDRD) Non-Af 96, BUN/Creatinine Ratio 10.2, Glucose 92, Calcium 8.4 L, Total Bilirubin 1.10 H, AST 442 H, ALT 457 H, Alkaline Phosphatase 77, Total Protein 6.2 L, Albumin 3.1 L, Globulin 3.1, Albumin/Globulin Ratio 1.0 Radiography Diagnostic Testing: Radiology Impression Abdomen/Pelvis CT 12/06/21 20:52 IMPRESSION: 1. Mild nonspecific intrahepatic periportal edema with contracted gallbladder. Correlate with LFTs and hepatitis profile. 2. Tiny nonobstructing right renal stone. Individualized dose optimization techniques were used for this CT. at 2231 Reported and signed by: Manuel Cabrera MD Electronically Signed: Manuel Cabrera MD at 22:30 EDT , Abdomen Ultrasound 12/07/21 00:34 IMPRESSION: Mild degree of gallbladder contraction. Mild degree of gallbladder wall thickening. No pericholecystic fluid is seen at this time. Electronically Signed: Lloyd Martinez MD at 8:46 EDT , Physical Exam Const alert, no apparent distress and average body habitus Resp normal respiratory effort, no retractions, no use of accessory muscles and clear to auscultation bilaterally Cardio regular rate, regular rhythm, S1 normal heart sound and S2 normal heart sound GI normal to inspection, nondistended, normoactive bowel sounds GI Narrative: +albarran's sign. Extremity normal to inspection Skin no rashes or lesions noted Neuro Sensorium / Orientation: awake and alert Psych affect normal Assessment & Plan Assessment/Plan (1) Cholecystitis: PLAN: 1. acute cholecystitis inflammation noted around GB on US. start pip/tazo DW Dr. Sotelo (who did her appendectomy in 2019) he will seen. Tentatively for surgery on 12/08. CLD, NPO after midnight. 2. Diarrhea transient doubt Cdiff given transient state, if no further diarrhea, can remove from contact isolation. 3. VTE prophylaxis: SCDs Charges/Coding Visit Charges Inpatient E&M: 86559 Subs Hosp L2
[2021-12-07] MEDS: Piperacil/Tazobactam 3.375 GM Q8 PREMIX IV ×2 (11:04→22:01)
--- NOTE | 2021-12-07 12:35 | CASEMGMT ---
RN QUINTEN Assessment: Face to Face with pt for initial transition planning/care coordination assessment. RN CM introduced self and role at [facility], pt voices understanding and consents to assessment. Pt is A/O x4 and answers all questions appropriately at this time. Pt sitting up in bed in no distress. Mother leaving room as RN CM entering. Care providers, pharmacy, and demographics verified/updated. Admitting Dx: Abd Pain PCP: Pt denies. Provided pt with a local healthcare directory list. Specialists:AUTOMOTIVE ENGINEERING TEACHER, [place] Preferred Pharmacy: [facility] Retail Insurance: [employer] Prescription Benefit: yes LW/HPOA: Pt denies having a LW/DPOA and denies need for info regarding AD. LNOK: Ellen Fuller, mother Living Arrangements: Pt lives with mother, father and brother in a two story house with 2 steps to enter. Pt reports she is I in ADL's and denies concerns at home. Transportation: Pt drives self and denies concerns with transportation. DME/HHC/SNF: Pt denies having any DME in the home, previous HHC or SNF stays. Pt occasionally drinks alcohol, several times a month. Pt denies any smoking or illegal drug use other than edibles less than once a month. Pt states no concerns with going home at time of dc. Pt states no further concerns/needs. CM to follow. Advised pt to ask CM if any further question/concerns/needs arise, voices understanding. Pt Goal: Home Plan: Home
[2021-12-07 14:00] VITALS: BP 110/70; PULSE 80; RESP 15; TEMP 36.8; O2SAT 99
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
[2021-12-07 20:11] VITALS: BP 120/75; PULSE 69; RESP 18; TEMP 36.9; O2SAT 100
[2021-12-07] MEDS: HYDROcodone Bitartrate/Apap 5/325 Tablet PO (20:13)
[2021-12-07] MEDS: Ondansetron 4 MG/2 ML Vial IV (22:01)
[2021-12-08] VITALS (12 sets, daily range): BP systolic 104–117; BP diastolic 58–76; PULSE 71–111; RESP 14–18; TEMP 36.2–37.4; O2SAT 96–100; BMI 24.3
--- NOTE | 2021-12-08 05:55 | EKG12_ITS ---
Test Reason : AM EKG Blood Pressure : / mmHG Vent. Rate : 073 BPM Atrial Rate : 073 BPM P-R Int : 158 ms QRS Dur : 072 ms QT Int : 402 ms P-R-T Axes : 065 078 032 degrees QTc Int : 442 ms Normal sinus rhythm Normal ECG No previous ECGs available Confirmed by RENETTA VAIL, WALESKA ([id number]), editorial specialist RABIA JAMA ([id number]) on 12/09/2021 1:47:54 PM Referred By: AMARIS Confirmed By:WALESKA JACKSON MD
[2021-12-08] MEDS: Piperacil/Tazobactam 3.375 GM Q8 PREMIX IV ×3 (06:06→21:21)
[2021-12-08 06:41] LABS: Absolute Lymphocyte Count 3.36 X10^3/uL (0.83-4.51); Absolute Neutrophil Count 3.2 X10^3/uL (2.0-7.7); Basophil# 0.07 X10^3/uL; Basophil% 0.9 % (0-1); Eosinophil# 0.42 X10^3/uL; Eosinophils% 5.4 % (0-5); Lymphocyte # 3.36 X10^3/ul (0.83-4.51); Lymphocyte % 43.4 % (19-41); Mean Corp Hgb Conc 33.3 g/dL (32-36); Mean Corpuscular Volume 86.9 fL (81-99); Mean Platelet Vol. 9.8 fl (6.2-12.0); Monocyte# 0.74 X10^3/uL; Monocyte% 9.5 % (0-10); NRBC Flagged by Analyzer 0 % (0-5); Neutrophil # 3.15 X10^3/uL (2.7-7.7); Neutrophil % 40.7 % (47-70); Platelet Count 385 K/mm3 (150-450); RBC Distribution Width SD 38.7 fl (35.1-43.9); Red Blood Count 4.49 M/mm3 (4.2-5.4); White Blood Count 7.8 K/mm3 (4.4-11.0)
[2021-12-08 06:56] LABS: Internal QC Validated? YES +Cl - CLEAR BKGD; Pregnancy, Serum, hCG Quali. NEGATIVE Negative
[2021-12-08 07:07] LABS: AST(SGOT) 95 U/L (15-37); Alanine Aminotransfer ALT/SGPT 297 U/L (13-56); Albumin, Serum 3.3 g/dL (3.2-5.0); Alkaline Phosphatase 90 U/L (45-117); Anion Gap 6 (5-15); BUN 7 mg/dL (7-18); BUN/Creat Ratio 8.3 RATIO (10-20); Calcium,Total 8.4 mg/dL (8.5-10.1); Chloride 108 mmol/L (98-107); Creatinine, Serum 0.85 mg/dL (0.55-1.02); EST Glomerular Filtration Rate 88 mL/min (>60); Est Glom Filt Rate - Afr Amer 106 mL/min (>60); Estimated Creatinine Clearance 81.41 ml/min; Globulin 3.3 g/dL (2.2-4.2); Glucose 81 mg/dL (74-106); Potassium 3.6 mmol/L (3.5-5.1); Protein, Total 6.6 g/dL (6.4-8.2); Sodium Level 140 mmol/L (136-145)
--- NOTE | 2021-12-08 11:27 | NURSING ---
PT OFF UNIT VIA BED FOR SURGERY
[2021-12-08] MEDS: Lactated Ringers 1,000 ML 15 ML IV ×2 (11:55→14:25)
--- NOTE | 2021-12-08 12:15 | RAD_ITS ---
STUDY: INTRAOPERATIVE CHOLANGIOGRAM. REASON FOR EXAM: Female, 21 years old. LAP LIOR FLUOROSCOPY TIME (if supplied): ( 10 seconds ) minutes/seconds. A cine loop of 71 images was submitted. TECHNIQUE: The surgeon performed an intraoperative Cholangiogram. Imaging was provided. COMPARISON: None. FINDINGS: The visualized intra and extrahepatic biliary ducts are unremarkable. Free flow of contrast is seen into the duodenum. RAD/Cholangiogram/ O R,Initial IMPRESSION: Unremarkable intraoperative cholangiogram. Electronically Signed: Lloyd Martinez MD at 15:44 EDT ,
--- NOTE | 2021-12-08 12:30 | GALL_PTH ---
PATIENT: SONG HORVATH LOC: MS3 U#:[id number] AGE/SX: 21/F ROOM: CT313 RE12/07/[address]: Dr. Anthony Delgado DO : 2000 BED: 1 DIS: 12/09/2021 SPEC #: [id number] RECD: 12/08/21 14:12 STATUS: SERGEY REYesenia #: [id number] MARY: 12/08/21 12:[address]: John Sotelo DEPT: SURGICAL PATHOLOGY RECD BY: Eric Rebollar ENTERED: 12/09/21 09:46 SP TYPE: SNEHAL HAYNES DR: DO Dr. El Gruber MD No Primary Care Phys Tissues: A - Gallbladder, NOS B - Liver, NOS Procedures: Surgery Specimen Level III Surgery Specimen Level IV HEADER OPERATION: Laparoscopic cholecystectomy with IOC PRE-OP DIAGNOSIS: Cholecystitis TISSUE SUBMITTED: A ? Gallbladder, B ? Liver biopsy MICROSCOPIC DIAGNOSIS A. Gallbladder, cholecystectomy: Mild chronic cholecystitis. A benign pericystic lymph node. See comment. B. Liver, core biopsy: Liver parenchymal tissue with minimal lobular and portal chronic inflammation. See microscopic description. SJ:nargis 12/10/2021 COMMENT A. No stones are identified in the container or in the gallbladder. Case has been reviewed in consultation with Dr. Nash who concurs with the above diagnosis. IDC:AM MICROSCOPIC DESCRIPTION Slides are reviewed. B. The specimen shows liver parenchymal tissue with preserved lobular architecture. Hepatocytes show mild reactive changes. Portal area show mild chronic inflammation consisting predominantly of lymphocytes. Focal minimal interface inflammation is noted. Trichrome stain does not show significant increase of fibrosis. Reticulin stain is unremarkable. Iron stain does not show increased iron. PAS stain with and without diastase do not show any abnormal accumulation of protein. All stains are performed with appropriate matched controls. GROSS DESCRIPTION A - Received is one container labeled with the patient's name and designated gallbladder. The specimen consists of a gallbladder measuring 4 cm in length and 2 cm in diameter. The external surface is pink-loredo, smooth and glistening for the most part. Focally it is granular, hemorrhagic and contains cautery artifact. The gallbladder contains a small amount of green-yellow mucoid bile. No stones are identified in the container or in the gallbladder. The mucosa is bile-stained and without any mass lesions. The gallbladder wall measures up to 0.2 cm in thickness. Also present close to the cystic duct is an ovoid nodule, possible lymph node, measuring 0.5 cm in greatest dimension. Liquefied Natural Gas Plant Operator sections from the gallbladder and the cystic duct including possible lymph node are submitted in one cassette. B - -Received in fixative is one container labeled with the patient's name and designated liver biopsy. The specimen consists of an elongated piece of loredo soft tissue measuring 0.7 cm in length and 0.1 cm in diameter. Also present in the container is a minute fragment of loredo soft tissue measuring 0.1 cm in greatest dimension. / SJ:rg 12/09/2021 TC:3 CPT: 62939, 65231
[2021-12-08] MEDS: Bupivacaine Mpf 0.5% 30 ML VIAL (13:00)
--- NOTE | 2021-12-08 13:13 | PCM.OPRPT ---
Problems Associated Problem List Diagnoses (1) Cholecystitis: Report of Operation Date of Procedure: 12/08/21 Pre-Operative Diagnosis: Acute cholecystitis Post-Operative Diagnosis: Same Surgery/Procedure Performed:: Laparoscopic cholecystectomy with intraoperative cholangiograms Surgeon: Deepak metal forger's assistant: Liane Conteh Type of Anesthesia: General Anesthesiologist: Bubba Oconnor Drains: None Estimated Blood Loss (mL): <25 cc Description of Procedure: Patient was brought into the operating room. Placed in the supine position. Under excellent general anesthetic the abdomen was sterilely prepped and draped in the usual fashion. Local was injected infraumbilically. Dissection was carried down to the fascia. The fascia was grasped with a Jocy. Varies needle was placed inside the abdomen. The abdomen was insufflated to 15 torr. A 10/12 trocar was placed without difficulty. Patient was placed in the head up and rotated to the left position. A subxiphoid #5 trochars placed, inferior to this another #5 trocar, laterally a #5 trocar. All of these under direct visualization without injury to underlying structures. Fundus of the gallbladder was grasped retracted in the cephalad direction. Moderate amount of adhesions were bluntly taken down from the gallbladder. I dissected out the cystic artery. Placed hemoclips proximally and distally and ligated the artery. Placed a Hemoclip on the cystic duct. Made a carmine in the duct. Cholangiogram catheter was placed through this and a cholangiogram was performed showing normal ductal anatomy without signs of filling defects. Cholangiogram was removed and another clip was placed on the duct the duct was ligated electrocautery was used to deliver the gallbladder from the gallbladder bed I had some spillage of bile but no spillage of stones I was able to retrieve all the bile with the irrigation. Placed the specimen in a specimen bag and delivered through the umbilical port. Given the fact that she had such an acute rise in her liver enzymes in 1 day I thought that it would be adrian for me to do a liver biopsy with a Trevor-Cut needle I was able to do that. I had good hemostasis with the use of the argon beam demurrage agent. I reentered checked the liver bed it was clean without signs of any bleeding I removed the trochars under direct visualization good hemostasis was noted. Fascia the umbilical port was closed with 0 Vicryl. Skin incisions were closed with subcuticular stitches of 4-0 Monocryl. Steri-Strips were applied sterile dressings were applied and the patient tolerated the procedure well. Admit VTE Documentation VTE Present on Admission: No VTE Mechan Device Prophylaxis: SCD's VTE Pharm Prophylaxis ordered?: No Reason prophylaxis not ordered:: Treatment Not Indicated
--- NOTE | 2021-12-08 13:23 | EX.PCM.DISCH ---
Discharge Instructions Procedure Gallbladder Diet Discharge Diet: Light diet - advance as tolerated Activity Discharge Activity: May Not Drive (for 2-3 days or while taking narcotic pain medications.) and - (Do not drive, work heavy equipment or sign legal documents for 24 hours.) May shower in (days): 1 (with the bandage in place.) Additional Activity Instructions:: Pain medication may cause nausea. You should typically eat light foods as you take your pain medications. Pain medication may also cause constipation. If this is a problem for you, please discuss with your doctor. Dressing / Incision Call your doctor if your incision/area has: Continuous Slow Oozing, Sudden Increased Bleeding, Increased Pain/ Swelling, Increased Redness and Foul Smelling Discharge Call your doctor if you observe: Fever of 101 or Higher Suture Line Care: Avoid Pulling/Pushing and Avoid Pinching/Bending Additional Dressing/Incision Instructions:: Leave operative bandaids on for 2 days. When you remove dressing, leave Steri-Strips on until your follow-up appointment, or until the Steri-Strips fall off on their own. Follow Up Care Please Follow Up With: Chrissy Flannery PA-C When: Call office to schedule an appointment to be seen in 7 days after surgery. Test Results: Test results from this visit will be discussed in further detail at your follow-up appointment, if applicable. Discharge Plan Admission Admit Date/Time: 12/07/21 04:00 Attending Provider: Anthony Delgado Primary Care Provider: Care Physician,No Primary Consulting Providers: John Sotelo Discharge Orders/Prescriptions Prescriptions: New hydrocodone-acetaminophen 5-300 mg tablet 1 tab PO Q6H PRN (Reason: pain) 5 Days Qty: 20 RF: 0 No Action spironolactone 100 MG tablet 100 mg PO QHS RF: 0 sumatriptan succinate 50 MG tablet 50 mg PO .X1 PRN RF: 0 Claritin 10 mg PO/SL QHS RF: 0 adapalene-benzoyl peroxide [Epiduo Forte] 0.3-2.5 % Gel With Pump 1 applic TOPICAL DAILY PRN (Reason: Acne) RF: 0 Referrals / Follow Up: Care Physician,No Primary [Primary Care Provider] - Chrissy Flannery PA-C [PHYSICIAN CUSTOMER SERVICE SALES ASSOCIATE] -
--- NOTE | 2021-12-08 13:24 | DS.PCM_ITS ---
Providers Date of Admission: 12/07/21 Primary Care Physician: No Primary Care Phys Consultations 12/07/21 09:27 Consult: General Surgery Routine Consulting Provider: John Sotelo Reason for Consult: cholecystitis EMERGENT Consult: No MD Notified: Yes Date Notified: 12/07/21 Time Notified: 09: Method of Notification: Verbal Reason For Visit: ABD PAIN NOS Diagnosis Discharge Diagnosis (1) Cholecystitis: Status: Acute Code(s): K81.9 - Cholecystitis, unspecified Medications at Discharge Home Medications spironolactone 100 mg PO QHS 04/14/20 sumatriptan succinate 50 mg PO .X1 PRN 04/14/20 Claritin 10 mg PO/SL QHS 04/15/20 adapalene-benzoyl peroxide [Epiduo Forte] 1 applic TOPICAL DAILY PRN 04/22/21 hydrocodone-acetaminophen 1 tab PO Q6H PRN 5 Days #20 tab 12/08/21 Hospital Course Operations cholecystecomy Summary of Care Provided Hospital Course: 21-year-old admitted to the hospital with upper abdominal pain. During the course she was noted to have elevation of her liver enzymes and subsequently underwent a laparoscopic cholecystectomy without difficulty. Weight / BMI Weight Weight: 133 lb 2 oz Body Mass Index (BMI) 24.3 ABG / Lab / Microbiology Data Result Diagrams: 12/08/21 06:05 12/08/21 06:05 Laboratory: Laboratory Results - last 24 hr 12/08/21 06:05: WBC 7.8, RBC 4.49, Hgb 13.0, Hct 39.0, MCV 86.9, MCH 29.0, MCHC 33.3, RDW Std Deviation 38.7, RDW Coeff of Cheri 12.0, Plt Count 385, MPV 9.8, Immature Gran % (Auto) 0.100, Neut % (Auto) 40.7 L, Lymph % (Auto) 43.4 H, [place] % (Auto) 9.5, Eos % (Auto) 5.4 H, Baso % (Auto) 0.9, Absolute Neuts (auto) 3.2, Absolute Lymphs (auto) 3.36, Nucleated RBC % 0 12/08/21 06:05: Sodium 140, Potassium 3.6, Chloride 108 H, Carbon Dioxide 26.0, Anion Gap 6, BUN 7, Creatinine 0.85, Estim Creat Clear Calc 81.41, Est GFR (MDRD) Af Amer 106, Est GFR (MDRD) Non-Af 88, BUN/Creatinine Ratio 8.3 L, Glucose 81, Calcium 8.4 L, Total Bilirubin 1.00, AST 95 H, ALT 297 H, Alkaline Phosphatase 90, Total Protein 6.6, Albumin 3.3, Globulin 3.3, Albumin/Globulin Ratio 1.0 12/08/21 06:05: Serum , Qual NEGATIVE D/C Instructions Discharge Diet: Light diet - advance as tolerated May shower in (days): 1 (with the bandage in place.) Additional Activity Instructions: Pain medication may cause nausea. You should typically eat light foods as you take your pain medications. Pain medication may also cause constipation. If this is a problem for you, janice sood discuss with your doctor. Call your doctor if your incision/area has: Continuous Slow Oozing, Sudden Increased Bleeding, Increased Pain/ Swelling, Increased Redness and Foul Smelling Discharge Call your doctor if you observe: Fever of 101 or Higher Suture Line Care: Avoid Pulling/Pushing and Avoid Pinching/Bending Additional Dressing/Incision Instructions: Leave operative bandaids on for 2 days. When you remove dressing, leave Steri-Strips on until your follow-up appointment, or until the Steri-Strips fall off on their own. Please Follow Up With: Chrissy Flannery PA-C When: Call office to schedule an appointment to be seen in 7 days after surgery. Meaningful Use Info Meaningful Use Diagnoses (Choose all that apply): None applicable Discharge Plan Admission Admit Date/Time: 12/07/21 04:00 Attending Provider: Anthony Delgado Primary Care Provider: Care Physician,Suzie Primary Consulting Providers: John Sotelo Discharge Orders/Prescriptions Prescriptions: New hydrocodone-acetaminophen 5-300 mg tablet 1 tab PO Q6H PRN (Reason: pain) 5 Days Qty: 20 RF: 0 No Action spironolactone 100 MG tablet 100 mg PO QHS RF: 0 sumatriptan succinate 50 MG tablet 50 mg PO .X1 PRN RF: 0 Claritin 10 mg PO/SL QHS RF: 0 adapalene-benzoyl peroxide [Epiduo Forte] 0.3-2.5 % Gel With Pump 1 applic TOPICAL DAILY PRN (Reason: Acne) RF: 0 Referrals / Follow Up: Care Physician,No Primary [Primary Care Provider] - Chrissy Flannery PA-C [PHYSICIAN CUSTOMER SUCCESS SPECIALIST] -
--- NOTE | 2021-12-08 14:16 | PCM.PN.HOSP ---
Subjective Subjective Feels better today. Has not had surgery by time I saw her. Objective Data Objective Data Vital Signs: Vital Signs Temp Pulse Resp BP Pulse Ox 36.2 C L 81 14 104/58 L 96 12/08/21 13:34 12/08/21 14:00 12/08/21 14:00 12/08/21 14:00 12/08/21 14:00 Oxygen Delivery Method Room Air Weight: 60.384 kg Body Mass Index (BMI) 24.3 Intake & Output: Intake and Output for Last 24 Hours 12/06/21 12/07/21 12/08/21 23:59 23:59 23:59 Intake Total 1000 / 1000 100 / 100 Balance 1000 / 1000 100 / 100 Lab / Micro Data Result Diagrams: 12/08/21 06:05 12/08/21 06:05 Labs: Laboratory Results - last 24 hr 12/08/21 06:05: WBC 7.8, RBC 4.49, Hgb 13.0, Hct 39.0, MCV 86.9, MCH 29.0, MCHC 33.3, RDW Std Deviation 38.7, RDW Coeff of Cheri 12.0, Plt Count 385, MPV 9.8, Immature Gran % (Auto) 0.100, Neut % (Auto) 40.7 L, Lymph % (Auto) 43.4 H, [place] % (Auto) 9.5, Eos % (Auto) 5.4 H, Baso % (Auto) 0.9, Absolute Neuts (auto) 3.2, Absolute Lymphs (auto) 3.36, Nucleated RBC % 0 12/08/21 06:05: Sodium 140, Potassium 3.6, Chloride 108 H, Carbon Dioxide 26.0, Anion Gap 6, BUN 7, Creatinine 0.85, Estim Creat Clear Calc 81.41, Est GFR (MDRD) Af Amer 106, Est GFR (MDRD) Non-Af 88, BUN/Creatinine Ratio 8.3 L, Glucose 81, Calcium 8.4 L, Total Bilirubin 1.00, AST 95 H, ALT 297 H, Alkaline Phosphatase 90, Total Protein 6.6, Albumin 3.3, Globulin 3.3, Albumin/Globulin Ratio 1.0 12/08/21 06:05: Serum , Qual NEGATIVE Physical Exam Const alert and no apparent distress Resp normal respiratory effort, no retractions and no use of accessory muscles Cardio regular rate, regular rhythm, S1 normal heart sound and S2 normal heart sound GI normal to inspection, nondistended, normoactive bowel sounds, soft to palpation, non-tender and non-distended Assessment & Plan Assessment/Plan (1) Cholecystitis: PLAN: 1. acute cholecystitis Status post lap boom inflammation noted around GB on US. start pip/tazo DW Dr. Sotelo (who did her appendectomy in 2019) he will seen. Tentatively for surgery on 12/08. CLD, NPO after midnight. 2. Diarrhea transient doubt Cdiff given transient state, if no further diarrhea, can remove from contact isolation. Discharge by general surgery today. Charges/Coding Visit Charges Inpatient E&M: 32968 Subs Hosp L2
[2021-12-08] MEDS: Morphine 4 MG/ML Syringe IV (16:42)
[2021-12-08] MEDS: 0.9% Saline Lock 10 ML Syringe IV ×3 (16:42→21:21)
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
[2021-12-08] MEDS: Ondansetron 4 MG/2 ML Vial IV (18:36)
[2021-12-08] MEDS: Morphine 2 MG/ML Syringe IV (21:20)
[2021-12-08] MEDS: Acetaminophen 325 MG Tablet 650 MG PO (21:20)
[2021-12-09 01:36] VITALS: BP 111/68; PULSE 75; RESP 18; TEMP 37; O2SAT 99
[2021-12-09] MEDS: HYDROcodone Bitartrate/Apap 5/325 Tablet PO ×2 (01:38→08:22)
[2021-12-09 05:51] VITALS: BP 117/74; PULSE 70; RESP 18; TEMP 36.6; O2SAT 93
[2021-12-09] MEDS: Morphine 2 MG/ML Syringe IV (05:56)
[2021-12-09] MEDS: Piperacil/Tazobactam 3.375 GM Q8 PREMIX IV (05:57)
[2021-12-09] MEDS: 0.9% Saline Lock 10 ML Syringe IV (05:57)
[2021-12-09 07:50] VITALS: BP 106/80; PULSE 89; RESP 16; TEMP 37.1; O2SAT 100
[2021-12-09 07:59] VITALS: O2SAT 100
[2021-12-09] MEDS: Pantoprazole Sodium 40 MG Tablet PO (08:22)
--- NOTE | 2021-12-09 11:20 | PCM.PN.HOSP ---
Subjective Subjective Had worsening abdominal pain. No flatus. +Belching. Objective Data Objective Data Vital Signs: Vital Signs Temp Pulse Resp BP Pulse Ox 37.1 C 89 16 106/80 100 12/09/21 07:50 12/09/21 07:50 12/09/21 07:50 12/09/21 07:50 12/09/21 07:59 Oxygen Delivery Method Room Air Weight: 60.384 kg Body Mass Index (BMI) 24.3 Intake & Output: Intake and Output for Last 24 Hours 12/07/21 12/08/21 12/09/21 23:59 23:59 23:59 Intake Total 1441.00 / 1441.00 100 / 100 Balance 1441.00 / 1441.00 100 / 100 Lab / Micro Data Result Diagrams: 12/08/21 06:05 12/08/21 06:05 Radiography Diagnostic Testing: Radiology Impression Cholangiogram 12/08/21 12:15 IMPRESSION: Unremarkable intraoperative cholangiogram. Electronically Signed: Lloyd Martinez MD at 15:44 EDT , Physical Exam Const alert and no apparent distress Resp normal respiratory effort, no retractions, no use of accessory muscles and clear to auscultation bilaterally Cardio regular rate, regular rhythm, S1 normal heart sound and S2 normal heart sound GI normal to inspection, nondistended, normoactive bowel sounds and soft to palpation GI Narrative: abdominal distention. Extremity normal to inspection and full ROM Assessment & Plan Assessment/Plan (1) Cholecystitis: PLAN: 1. acute cholecystitis Status post lap boom inflammation noted around GB on US. start pip/tazo s/p cholecystectomy 12/08. Worsening abdominal pain. Concern for ileus, check Xray. 2. Diarrhea transient doubt Cdiff given transient state, if no further diarrhea, can remove from contact isolation. . Charges/Coding Visit Charges Inpatient E&M: 73477 Subs Hosp L2
[2021-12-09 11:25] VITALS: BP 102/62; PULSE 90; RESP 18; TEMP 36.7; O2SAT 97
[2021-12-09 11:37] VITALS: BP 102/62; PULSE 90; RESP 16; TEMP 36.7; O2SAT 97
== END 2021-12-09 13:20 | disposition home or self-care (01) | DRG 419 ==
LOC: ED 21:05 → MS3 23:24
PROVIDERS: Surgery; Admitting Provider Internal Medicine; Emergency Provider Emergency Medicine
PROC: 0FT44ZZ Resection of Gallbladder, Percutaneous Endoscopic Approach (ICD-10-PCS; principal; 2021-12-08 12:10)
DX: K81.0 Acute cholecystitis (principal); E87.6 Hypokalemia; K52.9 Noninfective gastroenteritis and colitis, unspecified; L70.9 Acne, unspecified
CPT/HCPCS: 36415; 74177; 74300; 76000; 76705; 80053; 81001; 83690; 83735; 84100; 84703; 85025; 88304; 88305; 88307; 93005; 99285; J7030; J7120; Q9967; A4216; J1610; J2405

== ENCOUNTER 2023-02-03 16:30 | Emergency (ER) | payer OTHER, SELFPAY ==
[2023-02-03 16:31] VITALS: BP 119/77; PULSE 74; RESP 16; TEMP 35.7; O2SAT 100; BMI 24.3
[2023-02-03 18:03] LABS: Bacteria 0 SEEN /hpf (None Seen); Mucous, Urine 0 SEEN /hpf (<or=2+); Red Blood Cells-Urine 0 SEEN /hpf (0-5); White Blood Cells 0 SEEN /hpf (0-5)
[2023-02-03 18:15] LABS: Color, Urine Straw (Yellow); Glucose, Dipstick Normal (Normal); Ketone-Dipstick 5 mg/dl (Negative); Leukocyte Esterase-Dipstick Negative /ul (Negative); Nitrite-Dipstick Negative (Negative); Occult Blood-Urine Negative /ul (Negative); Protein-Dipstick Negative (Negative); Urine Bilirubin Dipstick Negative (Negative); Urine Clarity Clear (Clear); Urine Urobilinogen Normal (Normal); Urine pH 6.5 (5.0 - 8.0)
[2023-02-03 18:17] LABS: Absolute Neutrophil Count 3.9 X10^3/uL (2.0-7.7); Basophil# 0.08 X10^3/uL; Eosinophil# 0.14 X10^3/uL; Eosinophils% 1.7 % (0-5); Hematocrit 43.7 % (37-47); Lymphocyte % 40.6 % (19-41); Mean Corp Hgb Conc 34.3 g/dL (32-36); Mean Corpuscular Hgb 29.8 pg (27.0-32.0); Mean Corpuscular Volume 86.9 fL (81-99); Mean Platelet Vol. 9.4 fl (6.2-12.0); Monocyte# 0.68 X10^3/uL; Monocyte% 8.4 % (0-10); NRBC Flagged by Analyzer 0 % (0-5); Neutrophil # 3.89 X10^3/uL (2.7-7.7); Neutrophil % 47.9 % (47-70); Platelet Count 417 K/mm3 (150-450); RBC Distribution Width CV 11.9 % (11.6-14.6); RBC Distribution Width SD 37.8 fl (35.1-43.9); Red Blood Count 5.03 M/mm3 (4.2-5.4); White Blood Count 8.1 K/mm3 (4.4-11.0)
[2023-02-03 18:30] LABS: Internal QC Validated? YES +Cl - CLEAR BKGD; Pregnancy, Serum, hCG Quali. NEGATIVE Negative
[2023-02-03 18:35] LABS: ALB/GLOB Ratio 1.2 RATIO (0.9-2.4); AST(SGOT) 15 U/L (15-37); Alanine Aminotransfer ALT/SGPT 20 U/L (13-56); Albumin, Serum 4.2 g/dL (3.2-5.0); Alkaline Phosphatase 52 U/L (45-117); Anion Gap 6 (5-15); BUN 11 mg/dL (7-18); BUN/Creat Ratio 12.6 RATIO (10-20); Calcium,Total 9.5 mg/dL (8.5-10.1); Chloride 107 mmol/L (98-107); Creatinine, Serum 0.87 mg/dL (0.55-1.02); EST Glomerular Filtration Rate 84 mL/min (>60); Est Glom Filt Rate - Afr Amer 102 mL/min (>60); Estimated Creatinine Clearance 78.86 ml/min; Globulin 3.6 g/dL (2.2-4.2); Glucose 88 mg/dL (74-106); Lipase 36 U/L (13-75); Potassium 3.8 mmol/L (3.5-5.1); Protein, Total 7.8 g/dL (6.4-8.2); Sodium Level 139 mmol/L (136-145)
[2023-02-03 18:35] LABS: Squamous Epithelial Cells - UA 0-5 SEEN /hpf (5-10)
[2023-02-03] MEDS: Ondansetron 4 MG/2 ML Vial IV (18:35)
[2023-02-03] MEDS: Dicyclomine 20 MG/2 ML Vial IM (18:35)
--- NOTE | 2023-02-03 19:23 | ED.VIS.GI ---
HPI HPI - GI History of Present Illness Chief Complaint: Abd Pain Informant: patient Abdominal Pain/Flank Pain Onset: Days (3) Context: Sudden Onset Timing: Continuous and Waxes and wanes Quality: Sharp Location: Epigastric Worsened by: Food Relieved by: Nothing Nausea/Vomiting/Emesis GI Symptom: Positive for Nausea; Negative for Vomiting Diarrhea/Melena/Hematochezia GI Symptom: Negative for Diarrhea, Melena or Hematochezia Associated Symptoms Associated Symptoms: Negative for Dysuria, Frequency or Hematuria LMP: Approximately 1 week ago Narrative Narrative: Patient presents with abdominal pain that has been constant for the past 3 days. Patient states has been waxing and waning. Patient states it started in her back and radiated to her epigastric area. Patient states that when it gets worse now, it starts in her abdomen and radiates into her back. Patient describes her pain as sharp. Patient states it is over the epigastric area and mid back. Patient states it is worse with eating. Patient admits to nausea but denies any vomiting. Patient denies any diarrhea, melena, or hematochezia. Patient denies any urinary complaints. Patient states her last menstrual period was [address] [facility] Medical History (Updated 02/03/23 @ 19:[address] Anthony Merino, DO) Migraines Non-smoker Seasonal allergies Home Medications spironolactone 100 mg tablet 100 mg PO QHS acne 04/14/20 [History Last Taken 12/05/21] sumatriptan succinate 50 mg tablet 50 mg PO .X1 PRN migraines 04/14/20 [History Last Taken Unknown] Claritin 10 mg PO/SL QHS allergies 04/15/20 [History Last Taken 12/05/21] adapalene 0.3 %-benzoyl peroxide 2.5 % topical gel with pump (Epiduo Forte) 1 applic topical DAILY PRN Acne 04/22/21 [History Last Taken Unknown] hydrocodone 5 mg-acetaminophen 300 mg tablet 1 tab PO Q6H PRN pain 5 days #20 tabs 12/08/21 [Rx Last Taken Unknown] dicyclomine 10 mg capsule 20 mg PO TID PRN PRN abdominal pain #20 CAPSULES 02/03/23 [Rx Last Taken Unknown] hydrocodone-acetaminophen 5-325mg 5mg-325mg 1 tab PO Q6H PRN PRN Pain 3 days #10 TABLETS 02/03/23 [Rx Last Taken Unknown] omeprazole 20 mg capsule,delayed release 20 mg PO DAILY #30 CAPSULES 02/03/23 [Rx Last Taken Unknown] Allergy/AdvReac Type Severity Reaction Status Date / Time oxycodone [From Percocet] Allergy Intermediate hives and Verified 02/03/23 16:31 eye swelling Family History Mother No problems noted. Surgical History (Updated 02/03/23 @ 19:[address] Anthony Merino DO) History of appendectomy (~04/2020) History of wisdom tooth extraction Hx of cholecystectomy Social History Smoking Status: Never smoker ROS ROS ED Constitutional Constitutional ED: Denies chills or fever(s) Eyes Eyes: Denies blurry vision or change in vision ENT ENT ED: Denies rhinorrhea or sore throat Cardiovascular Cardiovascular: Denies chest pain or palpitations Respiratory/Chest Respiratory/Chest: Denies cough or dyspnea Gastrointestinal Gastrointestinal: Reports abdominal pain and nausea; Denies diarrhea, melena or vomiting Genitourinary Genitourinary ED: Denies dysuria or hematuria Musculoskeletal Musculoskeletal: Reports back pain; Denies neck pain Integumentary Denies abscess or rash Neurologic Neurologic: Denies headache(s) or weakness Allergic/Immunologic Allergic/Immunologic ED: Denies mouth swelling or urticaria EXAM Physical Exam Const Vital Signs: 02/03/23 16:31 Temperature 96.3 F L Temperature Source Temporal Pulse Rate 74 Respiratory Rate 16 Blood Pressure 119/77 Blood Pressure Mean 91 Pulse Ox 100 Oxygen Delivery Method Room Air Positive well nourished and well developed General Appearance ED: well developed HEENT Reports moist mucous membranes Neck supple and no JVD Resp normal respiratory effort and clear to auscultation bilaterally Cardio regular rate, regular rhythm and no murmurs GI normal to inspection, nondistended, normoactive bowel sounds Palpation: soft and tender epigastric and RUQ; Negative for guarding or rebound tenderness present Back/Spine no CVA tenderness Extremity normal to inspection General Extremety ED: Negative for edema or tenderness General Extremity: Negative for edema Neuro oriented x3, CN's II-XII intact bilaterally and no sensory deficits noted Sensorium / Orientation: alert Motor Exam: strength 5/5 throughout Psych mental status grossly normal Skin no rashes or lesions noted MDM MDM MDM Narrative Medical decision making narrative: Differential diagnosis includes gastritis, peptic ulcer disease, duodenal ulcer, pancreatitis, pyelonephritis, and urinary tract infection. CBC will be obtained to assess for leukocytosis and anemia. Comprehensive metabolic profile will be obtained to assess for hepatic function, renal function, and electrolyte abnormality. Lipase will be obtained to assess for pancreatitis. hCG will be obtained to assess for . Urinalysis will be obtained to assess for urinary tract infection and hematuria. Lab Data Attestation: I reviewed the patient's lab results. Lab results narrative: CBC was reviewed and was within normal limits. Comprehensive metabolic profile was reviewed and was within normal limits. Lipase was reviewed and was normal. Urinalysis was reviewed. There is no evidence of urinary tract infection or hematuria. Serum hCG was reviewed and was negative. Labs: Laboratory Results - last 24 hr 02/03/23 02/03/23 02/03/23 17:50 18:05 18:05 WBC 8.1 RBC 5.03 Hgb 15.0 Hct 43.7 MCV 86.9 MCH 29.8 MCHC 34.3 RDW Std Deviation 37.8 RDW Coeff of Cheri 11.9 Plt Count 417 MPV 9.4 Immature Gran % (Auto) 0.400 Neut % (Auto) 47.9 Lymph % (Auto) 40.6 [place] % (Auto) 8.4 Eos % (Auto) 1.7 Baso % (Auto) 1.0 Absolute Neuts (auto) 3.9 Absolute Lymphs (auto) 3.30 Nucleated RBC % 0 Sodium 139 Potassium 3.8 Chloride 107 Carbon Dioxide 26.0 Anion Gap 6 BUN 11 Creatinine 0.87 Estim Creat Clear Calc 78.86 Est GFR (MDRD) Af Amer 102 Est GFR (MDRD) Non-Af 84 BUN/Creatinine Ratio 12.6 Glucose 88 Calcium 9.5 Total Bilirubin 0.90 AST 15 ALT 20 Alkaline Phosphatase 52 Total Protein 7.8 Albumin 4.2 Globulin 3.6 Albumin/Globulin Ratio 1.2 Lipase 36 Serum , Qual Urine Color Straw Urine Clarity Clear Urine pH 6.5 Ur Specific [place] 1.010 Urine Protein Negative Urine Glucose (UA) Normal Urine Ketones 5 H Urine Occult Blood Negative Urine Nitrite Negative Urine Bilirubin Negative Urine Urobilinogen Normal Ur Leukocyte Esterase Negative Urine RBC 0 SEEN Urine WBC 0 SEEN Ur Squamous Epith Cells 0-5 SEEN Urine Bacteria 0 SEEN Urine Mucus 0 SEEN 02/03/23 18:05 WBC RBC Hgb Hct MCV MCH MCHC RDW Std Deviation RDW Coeff of Cheri Plt Count MPV Immature Gran % (Auto) Neut % (Auto) Lymph % (Auto) [place] % (Auto) Eos % (Auto) Baso % (Auto) Absolute Neuts (auto) Absolute Lymphs (auto) Nucleated RBC % Sodium Potassium Chloride Carbon Dioxide Anion Gap BUN Creatinine Estim Creat Clear Calc Est GFR (MDRD) Af Amer Est GFR (MDRD) Non-Af BUN/Creatinine Ratio Glucose Calcium Total Bilirubin AST ALT Alkaline Phosphatase Total Protein Albumin Globulin Albumin/Globulin Ratio Lipase Serum , Qual NEGATIVE Urine Color Urine Clarity Urine pH Ur Specific [place] Urine Protein Urine Glucose (UA) Urine Ketones Urine Occult Blood Urine Nitrite Urine Bilirubin Urine Urobilinogen Ur Leukocyte Esterase Urine RBC Urine WBC Ur Squamous Epith Cells Urine Bacteria Urine Mucus Treatment and Re-Evaluation :: Patient was given Zofran and Bentyl here. Patient is feeling better on reevaluation. Patient was advised of her findings. Patient was given a prescription for omeprazole. Patient was also given prescriptions for Bentyl and [place]. Patient was instructed to follow-up with her primary care physician in 5 to 7 days. Patient was instructed to return if worse in any way. Patient understood and was agreeable with plan. All questions were answered. Discharge Plan Triage Chief Complaint: Abd Pain ED Provider: Anthony Merino Dx/Rx/DC Orders Clinical Impression: Abdominal pain Instructions: ED Abdominal Pain Unkn Cause Fem Prescriptions: New dicyclomine 10 mg capsule 20 mg PO TID PRN PRN (Reason: abdominal pain) Qty: 20 0RF hydrocodone-acetaminophen [hydrocodone-acetaminophen] 5-325 mg tablet 1 tab PO Q6H PRN PRN (Reason: Pain) 3 Days Qty: 10 0RF omeprazole [omeprazole] 20 mg capsule,delayed release(DR/EC) 20 mg PO DAILY Qty: 30 0RF No Action spironolactone 100 MG tablet 100 mg PO QHS sumatriptan succinate 50 MG tablet 50 mg PO .X1 PRN Claritin 10 mg PO/SL QHS adapalene-benzoyl peroxide [Epiduo Forte] 0.3-2.5 % Gel With Pump 1 applic TOPICAL DAILY PRN (Reason: Acne) hydrocodone-acetaminophen 5-300 mg tablet 1 tab PO Q6H PRN (Reason: pain) 5 Days Qty: 20 0RF Primary Care Provider: Care Physician,No Primary Referrals: Allie Miramontes DO [Med Staff - Active Staff] - 5-7 Days Care Physician,No Primary [Primary Care Provider] - Disposition Disposition: Home, Self Care
== END 2023-02-03 19:49 | disposition home or self-care (01) ==
PROVIDERS: Emergency Provider Emergency Medicine; Visit Provider Emergency Medicine
DX: R10.9 Unspecified abdominal pain (principal); R11.2 Nausea with vomiting, unspecified; J30.2 Other seasonal allergic rhinitis; Z79.899 Other long term (current) drug therapy; G43.909 Migraine, unspecified, not intractable, without status migrainosus; Z90.49 Acquired absence of other specified parts of digestive tract
CPT/HCPCS: 80053; 81001; 83690; 84703; 85025; 96372; 96374; 99283; J2405

== ENCOUNTER 2024-01-09 07:07 | Day surgery (SDC) | payer BC, SELFPAY ==
--- NOTE | 2024-01-09 | COLBX_PTH ---
PATIENT: SONG HORVATH LOC: EN U#:[id number] AGE/SX: 23/F ROOM: RE01/09/[address]: Dr. Rhianna Dorsey MD : 2000 BED: DIS: 01/09/2024 SPEC #: [id number] RECD: 01/09/24 12:55 STATUS: SERGEY YUEYesenia #: [id number] MARY: 01/09/24 00:[address]: Rhianna Dorsey DEPT: SURGICAL PATHOLOGY RECD BY: Caio Huang ENTERED: 01/09/24 12:55 SP TYPE: COLON BX OTHR DR: Dr. Allie Miramontes, DO Tissues: Rectum, NOS Procedures: Surgery Specimen Level IV HEADER OPERATION: Colonoscopy with polypectomy PRE-OP DIAGNOSIS: Abdominal cramping, diarrhea TISSUE SUBMITTED: Rectal polyp MICROSCOPIC DIAGNOSIS Rectal polyp, biopsy: Fragments of tubular adenoma. AM/mr 01/10/2024 MICROSCOPIC DESCRIPTION Slides are reviewed. GROSS DESCRIPTION Received in fixative is one container labeled with the patient's name and designated Rectum polyp. The specimen consists of multiple irregular fragments of light loredo soft tissue that in aggregate measure 1.75 x 0.25 x 0.5 cm. The specimen is totally submitted in one cassette. 01/09/2024 TC:5 CPT:24169
--- NOTE | 2024-01-09 07:15 | HP.PCM_ITS ---
HPI - General General Date of Service: 01/09/24 HPI Narrative ANAY HORVATH, is a 23 F who presents for colonoscopy due to abdominal cramping and diarrhea after eating. Patient did state that dicyclomine did help quite a bit with the cramping still has some diarrhea but it is all but improved. Patient states she takes it typically before dinner sometimes takes it twice a day other times just once a day and occasionally not at all. office visit 11/24/23 HPI HPI: 23-year-old female presents for colonoscopy and abdominal bloating/cramping and diarrhea after eating. Patient did see GI at [facility] who ordered a CT enterography which was normal in August did not recommend colonoscopy per patient. Patient states that she will get bloated and crampy after eating will also have diarrhea. Patient states she does have normal bowel movements in betw een and only occasional diarrhea. Patient denies any family history of colon cancer or inflammatory bowel disease. Patient denies any blood recently in her stool. Patient states last year in 2022 she really had it twice once was bright red that there was dark red in the bowel movement. Patient currently denies any abdominal pain. Patient does not think she has been on dicyclomine previously. [facility] Medical History (Updated 01/04/24 @ 10:58 by Amber Dacosta) Diarrhea History of IBS History of steroid therapy Migraines Non-smoker Rash Seasonal allergies Home Medications spironolactone 100 mg tablet 100 mg PO QHS acne 04/14/20 [History Last Taken 12/05/21] Claritin 10 mg PO/SL QHS allergies 04/15/20 [History Last Taken 12/05/21] adapalene 0.3 %-benzoyl peroxide 2.5 % topical gel with pump (Epiduo Forte) 1 applic topical DAILY PRN Acne 04/22/21 [History Last Taken Unknown] Saccharomyces boulardii 250 mg capsule (Daily Probiotic (S. boulardii)) 250 mg PO DAILY 11/24/23 [History Last Taken Unknown] dicyclomine 20 mg tablet 20 mg PO BID #30 tabs 11/24/23 [Rx Last Taken Unknown] magnesium glycinate 100 mg tablet 100 mg PO DAILY 11/24/23 [History Last Taken Unknown] prednisone 10 mg tablet 20 mg PO DAILY 01/04/24 [History Last Taken Unknown] Allergy/AdvReac Type Severity Reaction Status Date / Time oxycodone [From Percocet] Allergy Intermediate hives and Verified 01/04/24 10:50 eye swelling Family History (Updated 11/24/23 @ 14:30 by Anay Mills) Mother No problems noted. Grandfather Diabetes Surgical History History of appendectomy (~04/2020) History of wisdom tooth extraction Hx of cholecystectomy S/P tonsillectomy Social History (Updated 11/24/23 @ 14:30 by Anay Mills) Smoking Status: Never smoker alcohol intake: current Past Medical/Surgical History Planned Operation Planned Operative Procedure/s: CSCOPE Previous Hospitalizations/Surgeries HX Hospitalizations: No Any Problems With Anesthesia: Yes You/Your Family Experience Fever (Hyperthermia) With Anes: No Cholinesterase deficiency: No Cardiovascular Hx Chest Pain within Last 2 months: No Hx of Irregular Heartbeat and/or Afib: No Hx Heart Attack: No Hx Hypertension: No Hx Cardiac Surgery/Stents/Etc.: No Hx Pain in Legs when Walking/Leg Cramps: No Respiratory Hx Chronic Obstructive Pulmonary Disease (COPD): No Hx Emphysema: No Hx Sleep Apnea: No CPAP: No Hx Respiratory Tract Infection/Cold (presently): No Do You Snore Loudly (louder than talking or can be heard): No Do You Often Feel Tired/ Fatigued/ Sleepy [place] Daytime?: No Has Anyone Observed You Stop Breathing During Sleep?: No Result (for STOP score): Negative Hx Smoking: No Smoking Status: Never smoker Gastrointestinal Hx Gastrointestinal Bleed: No Hx Ulcer: No Hx Unplanned Weight Loss of 20#: No Neurological Hx Seizures: No Hx Multiple Sclerosis: No Hx Parkinson's Disease: No Does patient have nerve stimulator: No Blood Disorder Hx Hepatitis: No Hx Cirrhosis: No Hx Anemia: No Hx Blood Disorders: No Reproduction : No Genitourinary Hx Renal Disease: No Hx Dialysis: No Musculoskeletal Hx Arthritis: No Hx Rheumatoid Arthritis: No Endocrine Hx Diabetes: No Thyroid Disease: No Psycho/Social Hx Substance Use: No Hx Alcohol Use: Yes (occasional) Hx Anxiety: No Hx Depression: No Hx Dementia: No Miscellaneous Hx Cancer: No Recent Exposure to Contagious Disease: No Allergies oxycodone [From Percocet] Allergy (Intermediate, Verified 01/04/24 10:50) hives and eye swelling Maternal: Family History (Updated 11/24/23 @ 14:30 by Anay Mills) Mother No problems noted. Grandfather Diabetes No pertinent history Discharge Is Pt Admitted From a Senior Care, or a Half-Way: No After D/C, Where Do you Plan to Go: Return Home Physical Exam Const alert, oriented x3 and no apparent distress HEENT normocephalic and head/scalp atraumatic Resp normal respiratory effort Cardio regular rate GI soft to palpation and non-tender; Negative for non-distended Palpation: Negative for guarding Extremity no clubbing, cyanosis or edema Skin no rashes or lesions noted Neuro CN's II-XII intact bilaterally Psych mental status grossly normal Assessment & Plan Assessment/Plan (1) Abdominal cramping: (2) Diarrhea: Surgery Risks - Colonoscopy I discussed with the patient the risks of the procedure: Yes Risks Include but are not Limited To: Risks include but are not limited to: Bleeding, perforation requiring further surgery, inability to complete colonoscopy requiring barium enema.
[2024-01-09 07:38] VITALS: BP 119/66; PULSE 83; RESP 16; TEMP 36.9; O2SAT 100; BMI 25.0
[2024-01-09] MEDS: Lactated Ringers 1,000 ML 15 ML IV (07:49)
[2024-01-09 07:51] LABS: Internal QC Validated? YES +Cl - CLEAR BKGD; Pregnancy, Urine Negative Negative
[2024-01-09 08:25] VITALS: BP 119/66; BP 121/81; PULSE 81; RESP 16; TEMP 36.2; O2SAT 100
--- NOTE | 2024-01-09 08:26 | OP.CCLET_ITS ---
01/09/2024 No Primary Care Physician Re : Colonoscopy procedure for Anay Fuller Dear Care Physician This procedure was performed on Tuesday, January 09, 2024. My impressions and recommendations are as follows: Impressions : - One less than 5 mm polyp in the rectum, removed with a hot snare. Resected and retrieved. - The examination was otherwise normal on direct and retroflexion views. Recommendations : - Discharge patient to home. - Resume previous diet. - Continue present medications. - Await pathology results. - Repeat colonoscopy in 5 years for surveillance based on pathology results. My findings are described in the full procedure note, which is enclosed. If I can be of further assistance, please feel free to contact me at Doctor phone number(s): , Work: . Sincerely, MD Rhianna Young MD 01/09/2024 8:26:25 AM This report has been signed electronically.
--- NOTE | 2024-01-09 08:26 | OP.COLON_ITS ---
Patient Name: Anay Fuller Procedure Date: 01/09/2024 7:54 AM Date of : 2000 Age: 23 Procedure: Colonoscopy Indications: Abdominal pain, Diarrhea Providers: Rhianna Dorsey MD Medicines: Monitored Anesthesia Care Patient Profile: Last Colonoscopy: none. The patient's first colonoscopy is today. Complications: No immediate complications. Procedure: Pre-Anesthesia Assessment: - Prior to the procedure, a History and Physical was performed, and patient medications and allergies were reviewed. The patient's tolerance of previous anesthesia was also reviewed. The risks and benefits of the procedure and the sedation options and risks were discussed with the patient. All questions were answered, and informed consent was obtained. Prior Anticoagulants: The patient has taken no anticoagulant or antiplatelet agents. ASA Grade Assessment: Per anesthesia. After reviewing the risks and benefits, the patient was deemed in satisfactory condition to undergo the procedure. After I obtained informed consent, the scope was passed under direct vision. Throughout the procedure, the patient's blood pressure, pulse, and oxygen saturations were monitored continuously. The Colonoscope was introduced through the anus and advanced to the terminal ileum. The colonoscopy was performed without difficulty. The patient tolerated the procedure well. The quality of the bowel preparation was good. Scope In: 8:01:56 AM Scope Withdrawal Time 0 hours 11 minutes 3 seconds Scope Out: 8:18:56 AM Total Procedure Duration Time 0 hours 17 minutes 0 seconds Findings: The perianal and digital rectal examinations were normal. A less than 5 mm polyp was found in the rectum. The polyp was semi-pedunculated. The polyp was removed with a hot snare. Resection and retrieval were complete. The exam was otherwise without abnormality on direct and retroflexion views. Impression: - One less than 5 mm polyp in the rectum, removed with a hot snare. Resected and retrieved. - The examination was otherwise normal on direct and retroflexion views. Recommendation: - Discharge patient to home. - Resume previous diet. - Continue present medications. - Await pathology results. - Repeat colonoscopy in 5 years for surveillance based on pathology results. Procedure Code(s): --- Professional --- 22612, Colonoscopy, flexible; with removal of tumor(s), polyp(s), or other lesion(s) by snare technique Diagnosis Code(s): --- Professional --- D12.8, Benign neoplasm of rectum R10.9, Unspecified abdominal pain R19.7, Diarrhea, unspecified CPT copyright 2021 [employer]. All rights reserved. The codes documented in this report are preliminary and upon program evaluator review may be revised to meet current compliance requirements. MD Rhianna Young MD 01/09/2024 8:26:25 AM This report has been signed electronically. Number of Addenda: 0 Note Initiated On: 01/09/2024 7:54 AM
[2024-01-09 08:30] VITALS: BP 119/66; BP 122/87; PULSE 90; RESP 16; O2SAT 100
[2024-01-09 08:35] VITALS: BP 119/66; BP 122/82; PULSE 82; RESP 16; TEMP 36.3; O2SAT 100
[2024-01-09 08:51] VITALS: BP 119/66
== END 2024-01-09 09:14 | disposition home or self-care (01) ==
LOC: EN 07:08 → AC 07:09
PROVIDERS: Anesthesiology; PCP Family Medicine; Referring Provider Family Medicine; Visit Provider Surgery
PROC: 0DJD8ZZ Inspection of Lower Intestinal Tract, Via Natural or Artificial Opening Endoscopic (ICD-10-PCS; CPT 45378; principal; 2024-01-09 08:10)
DX: D12.8 Benign neoplasm of rectum (principal); R10.9 Unspecified abdominal pain; Z90.49 Acquired absence of other specified parts of digestive tract; R14.0 Abdominal distension (gaseous); R19.7 Diarrhea, unspecified
CPT/HCPCS: 45385; 81025; 88305; J7120